=== PATIENT | female | born 1965 | race Caucasian/White ===

== ENCOUNTER 2016-11-17 16:32 | Emergency (ER) | payer BC ==
[~2016-11-17] VITALS: Ht 167.6 cm; Wt 60.6 kg
[2016-11-17 17:30] LABS: CHLORIDE 104 mEq/L (99-109); SODIUM 141 mEq/L (136-147)
[2016-11-17 17:31] LABS: HEMATOCRIT 43.1 % (36.0-46.0); MCH 31.2 PG (29.0-34.0); MCHC 34.6 G/DL (30.0-36.0); MCV 90.4 FL (83-99); MEAN PLAT.VOLUME 10.3 uM^3 (9.5-12.4); PLATELET COUNT 251 K/uL (156-360); RBC DIS.WIDTH-CV 12.9 % (11.8-14.6); RBC DIS.WIDTH-SD 41.8 % (39-53); RED BLOOD COUNT 4.77 M/uL (3.80-5.20); WHITE BLOOD COUNT 7.8 K/uL (4.1-10.2)
[2016-11-17 17:32] LABS: GLUCOSE 91 mg/dL (70-99)
[2016-11-17 17:34] LABS: ANION GAP 12 MEQ/L (2-14)
[2016-11-17 17:36] LABS: GFR ESTIMATE (CALCULATED) > 59 mL/min/
[2016-11-17 17:37] LABS: UREA NITROGEN (BUN) 17 mg/dL (9-23)
[2016-11-17 17:40] LABS: TROP-I INTERPRETATION NEGATIVE; TROPONIN-I < 0.01 ng/mL (0.0-0.30)
[2016-11-17 21:37] LABS: HEMATOCRIT 41.7 % (36.0-46.0); MCHC 34.3 G/DL (30.0-36.0); MCV 90.5 FL (83-99); PLATELET COUNT 243 K/uL (156-360); RBC DIS.WIDTH-CV 12.9 % (11.8-14.6); RBC DIS.WIDTH-SD 41.9 % (39-53); RED BLOOD COUNT 4.61 M/uL (3.80-5.20)
[2016-11-17 22:03] LABS: TROP-I INTERPRETATION NEGATIVE; TROPONIN-I < 0.01 ng/mL (0.0-0.30)
[2016-11-17 22:48] LABS: D-DIMER ELISA 0.22 mg/L FEU (< 0.57)
[2016-11-17] MEDS ORDERED: XANAX0.25 MG PO (22:58)
[2016-11-17 23:20] VITALS: BP 142/85
== END 2016-11-17 23:28 | disposition home or self-care (01) ==
LOC: EME 16:32
PROVIDERS: Emergency Medicine
DX: R00.2 Palpitations (principal); F41.9 Anxiety disorder, unspecified; R42 Dizziness and giddiness; F10.20 Alcohol dependence, uncomplicated
CPT/HCPCS: 71020; 80048; 84443; 84484; 85027; 85379; 93005; 99281; 99285